=== PATIENT | female | born 1960 | race Caucasian/White ===

== ENCOUNTER 2020-04-02 11:30 | Outpatient (CLI) | payer OTHER, SELFPAY ==
--- NOTE | 2020-04-02 11:34 | MM_ITS ---
WS: [id number] BILATERAL DIGITAL SCREENING MAMMOGRAPHY WITH CAD CLINICAL INFORMATION: SCREENING HISTORY: Screening mammogram. No current complaints. COMPARISON: None. TECHNIQUE: Bilateral CC and MLO views. FINDINGS: The breasts are composed of heterogeneous fibroglandular density tissue, which can limit the detectio n of small underlying mass lesions. Dense asymmetric breast tissue upper outer LEFT breast. Recommend spot compression views and ultrasou nd for further evaluation. 7 mm asymmetric density upper outer RIGHT breast posterior depth. Recommend spot compression views an d ultrasound for further evaluation. 5 mm asymmetric density inner RIGHT breast best seen on the cc view. Recommend further evaluation wit h spot compression views and ultrasound. No comparisons. Punctate and lucent centered calcifications. MM/[place] [id number] IMPRESSION: BI-RADS: 0-Incomplete: Need additional imaging evaluation FOLLOW UP: Need Additional Imaging Several asymmetric densities described above require BILATERAL diagnostic mammo graphy and ultrasound for further evaluation.
== END 2020-04-02 11:31 | disposition home or self-care (01) ==
LOC: RADSHAW 11:30
PROVIDERS: PCP Electrodiagnostic Medicine; Visit Provider Nurse Practitioner Family
DX: Z12.31 Encounter for screening mammogram for malignant neoplasm of breast (principal); N64.89 Other specified disorders of breast
CPT/HCPCS: 77067

== ENCOUNTER 2020-04-15 07:54 | Outpatient (CLI) | payer OTHER, SELFPAY ==
--- NOTE | 2020-04-15 09:00 | XRR_ITS ---
PROCEDURE INFORMATION: Exam: XR Abdomen, 1 View Exam date and time: 04/15/2020 8:15 AM Age: 59 years old Clinical indication: Pain and condition or disease; Kidney or ureter condition; Calculus (stone) in kidney; Abdominal pain; Generalized; Prior surgery; Surgery type: Appendectomy, laproscopy; Patient HX: Left abd pain, history of kidney stones TECHNIQUE: Imaging protocol: XR of the abdomen. Views: Frontal supine view of the abdomen. 1 View. COMPARISON: CT abdomen pelvis w con* [id number] 11/21/2018 9:56 AM FINDINGS: Gastrointestinal tract: There is prominence of the amount of stool in the colon but otherwise the bowel gas pattern is unremarkable. No bowel dilation. Organs: No calcifications project on the kidneys or ureters. Small phleboliths are present in the lower pelvis. Bones/joints: Unremarkable. XR/XR KUB [id number] IMPRESSION: No acute abnormality. No renal stones are seen.
== END 2020-04-15 07:55 | disposition home or self-care (01) ==
LOC: RAD 08:00
PROVIDERS: PCP Electrodiagnostic Medicine; Visit Provider Nurse Practitioner Family
DX: N20.0 Calculus of kidney (principal); R10.84 Generalized abdominal pain; R31.9 Hematuria, unspecified
CPT/HCPCS: 74018; 80053; 81003; 88112

== ENCOUNTER 2020-04-29 13:17 | Outpatient (CLI) | payer OTHER, SELFPAY ==
--- NOTE | 2020-04-29 13:22 | US_ITS ---
WS: [id number] BILATERAL DIGITAL DIAGNOSTIC MAMMOGRAM MAMMOGRAPHY WITH CAD CLINICAL INFORMATION: BILATERAL BREAST MASS COMPARISON: April 02, 2020 TECHNIQUE: Bilateral CC, MLO, and ML views. FINDINGS: The breasts are composed of heterogeneous fibroglandular density, which can limit the detection of sm all underlying mass lesions. Lucent centered calcifications. Previously described asymmetric densitie s in both breasts are unchanged. Ultrasound is pending. ULTRASOUND BREAST BILATERAL TECHNIQUE: Ultrasound bilateral breast focused area of concern. CLINICAL INFORMATION: BILATERAL BREAST MASS COMPARISON: None. FINDINGS: Ultrasound bilateral breasts. Hypoechoic solid lesion right breast 12:00 position 2 cm from the nippl e measuring 5.1 x 4.6 x 5.8 mm. This is nonspecific and recommend further evaluation with ultrasound- guided biopsy. Adjacent ductal ectasia. No other suspicious lesions. Dense parenchymal tissue in both breasts. No suspicious lesions in the l eft breast. US/US breast BI limited* [id number] IMPRESSION: BI-RADS: 4-Suspicious Finding-Biopsy Should Be Considered FOLLOW UP: US Guided Biopsy Recommended Recommend ultrasound-guided biopsy right breast lesion.
--- NOTE | 2020-04-30 14:59 | PC.NURSE ---
Spoke to pt regarding Bx date and preop instructions. Patient voiced understanding and all questions answered. Pt to see pcp 05/05 at 820. Rian CHOE
== END 2020-04-29 13:18 | disposition home or self-care (01) ==
LOC: RADSHAW 13:20
PROVIDERS: PCP Electrodiagnostic Medicine; Visit Provider Electrodiagnostic Medicine
DX: R92.8 Other abnormal and inconclusive findings on diagnostic imaging of breast (principal); N63.15 Unspecified lump in the right breast, overlapping quadrants; N63.20 Unspecified lump in the left breast, unspecified quadrant
CPT/HCPCS: 76642; 77066

== ENCOUNTER 2020-05-11 07:00 | Outpatient (CLI) | payer OTHER, SELFPAY ==
[2020-05-11 07:37] LABS: INR 0.84 (0.8-1.2)
--- NOTE | 2020-05-11 08:00 | US_ITS ---
WS: [id number] ULTRASOUND-GUIDED RIGHT BREAST BIOPSY HISTORY: Right Breast lesion COMPARISON: 04/29/2020 and 04/02/2020 Procedure, risks and complications are explained to the patient. Medications are reviewed. Consent is obtained. The mass in the RIGHT breast is localized with ultrasound. Mass at 12:00, 2 cm from the nipple. Skin is cleansed with ChloraPrep and anesthetized with 1% buffered lidocaine. Small dermatome is made. Und er sterile conditions mass is biopsied with a 14-gauge Achieve needle. Multiple core biopsies are per formed. Material placed in formalin and sent to pathology for review. No complications encountered. Mass collapsed and became less apparent after several biopsies were performed suggesting this is prob ably of benign etiology. Breast tissue marker (Bard ultrasound enhanced ribbon): Single. Patient left the radiology suite with no complications. Patient is instructed [place] [facility] [place] [facility] with any concerns. US/[place] [id number] IMPRESSION: 1. Uncomplicated core needle biopsy RIGHT breast mass at 12:00. 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 No malignancy. RECOMMENDATION: Return to annual screening mammography. Screening mammography s jory be an March 2021.
== END 2020-05-11 07:01 | disposition home or self-care (01) ==
LOC: RAD 07:05
PROVIDERS: PCP Electrodiagnostic Medicine; Visit Provider Electrodiagnostic Medicine
DX: R92.8 Other abnormal and inconclusive findings on diagnostic imaging of breast (principal); N63.10 Unspecified lump in the right breast, unspecified quadrant; N62 Hypertrophy of breast; N60.41 Mammary duct ectasia of right breast; Z01.812 Encounter for preprocedural laboratory examination
CPT/HCPCS: 19083; 85610; 88305

== ENCOUNTER 2020-05-19 07:03 | Outpatient (CLI) | payer OTHER, SELFPAY ==
[2020-05-19] MEDS: iohexol 300 mg/mL 100 mL Btl IV (07:59)
--- NOTE | 2020-05-19 08:30 | CT_ITS ---
WS: [id number] CT ABDOMEN AND PELVIS WITH AND WITHOUT CONTRAST HISTORY: GROSS HEMATURIA TECHNIQUE: Unenhanced 5 mm axial imaging first performed through the abdomen. Post contrast imaging t hrough the abdomen and pelvis. Oral contrast has not been provided. Sagittal and coronal reformats a re submitted. All CT scans at [facility] use at least one of these dose optimization tech niques: automated exposure control; mA and/or kV adjustment per patient size (includes targeted exams where dose is matched to clinical indication); or iterative reconstruction. CONTRAST: Omnipaque 300; 95 mL IV. DLP: 2389.16 mGy.cm COMPARISON: 11/21/2018 Lung bases are clear. Heart size is normal. Small hiatal hernia. Liver is normal size with no bile duct dilatation. Negative gallbladder. Normal size spleen with gran ulomata. Pancreas and adrenal glands are normal. Normal aorta. RIGHT kidney: Normal size with no perinephric stranding. No calcifications or obstruction. No solid m ass. No uroepithelial lesions in the ureters or renal pelvis. LEFT kidney: Normal size with no perinephric stranding. No renal calcifications or obstruction. No re nal mass. No uroepithelial lesion. Urinary bladder: Urinary bladder is only minimally distended. The bladder wall is mildly thickened th roughout. There is no discrete mass. The thickening is symmetric and probably due to nondistention. There is marked constipation throughout the colon which has been previously described. No stricture o r change in caliber. Prior appendectomy. There is no ascites or adenopathy. Mild degenerative disc disease at L5-S1. No fractures. CT/CT abdomen pelvis wo/w [id number] IMPRESSION: 1. No renal calcifications or obstruction or mass. 2. Mild thickening of the bladder wall is probably due to underdistention. 3. Diffuse marked constipation. 4. Prior appendectomy. 5. Small hiatal hernia.
== END 2020-05-19 07:04 | disposition home or self-care (01) ==
LOC: CT 07:06
PROVIDERS: PCP Electrodiagnostic Medicine; Visit Provider Urology
DX: R31.0 Gross hematuria (principal); K44.9 Diaphragmatic hernia without obstruction or gangrene; K59.00 Constipation, unspecified; Q42.8 Congenital absence, atresia and stenosis of other parts of large intestine; N30.90 Cystitis, unspecified without hematuria
CPT/HCPCS: 74178; 81003

== ENCOUNTER → 2020-07-10 08:44 | Outpatient (BNVA) | payer OTHER, SELFPAY | PROVIDERS: PCP Electrodiagnostic Medicine; Visit Provider Surgery | DX: Z11.59 Encounter for screening for other viral diseases (principal) | CPT/HCPCS: 87635 ==

== ENCOUNTER 2020-07-16 07:31 | Day surgery (SDC) | payer OTHER, SELFPAY ==
[2020-07-15 13:51] VITALS: BMI 29.2
[2020-07-16 07:56] VITALS: BP 123/66; PULSE 72; RESP 18; TEMP 36.8; O2SAT 97
--- NOTE | 2020-07-16 07:59 | US_ITS ---
WS: [id number] ULTRASOUND-GUIDED RIGHT BREAST NEEDLE LOCALIZATION HISTORY: Localization RIGHT breast mass at 12:00. Procedure, risks and complications were explained to the patient. Consent is obtained. Skin is cleansed with ChloraPrep and anesthetized with 1% buffered lidocaine. Needle and guidewire pl aced in the area of concern with no complications. Mass and clip localized 12:00, 2 cm from the nippl e. Ultrasound guidance performed during the needle localization. Guidewire is left within the lesion. Guidewire secured and no complications encountered. Patient is being transported to the OR suite. Specimen radiograph is also reviewed. Clip and wire present. RECOMMENDATIONS: 6 month diagnostic RIGHT mammogram. US/[place] [id number] IMPRESSION: 1. Uncomplicated wire localization RIGHT breast mass at 12:00. Biopsy clip is noted. 2. Post biopsy site of the clip are present within the specimen. PATHOLOGY RESULTS: Benign breast tissue with fibrocystic changes. Duct ectasia and stromal sclerosis. Microcalcifications identified. Prior biopsy changes are identified. No atypia or malignancy.
[2020-07-16] MEDS: sodium chloride 0.9% 1,000 ML 30 ML IV (09:10)
--- NOTE | 2020-07-16 09:18 | ANES.PREANE2 ---
Pre-Anesthetic Assessment Pre-Anesthetic Assessment: Height/Weight: Height 1.57 m Weight 72.575 kg Temp Pulse Resp BP Pulse Ox 98.3 F 72 18 123/66 97 07/16/20 07:56 07/16/20 07:56 07/16/20 07:56 07/16/20 07:56 07/16/20 07:56 Preop Diagnosis: Breast lump Proposed Procedure: Operation Date: 07/16/20 10:00 Proposed Procedures p Excisional [place] [address] R89.7(Right) - Dev Calix MD Familial anesthetic complications: None Was Beta Adam taken within 24 hours: N/A Last intake: Intake Last Liquid Date 07/15/20 Last Liquid Time 21:00 Last Solid Date 07/15/20 Last Solid Time 21:00 Social: Social History: No alcohol and No tobacco Exam: Pre-Anes Outpt Exam: alert, oriented x 3, clear to auscultation bilaterally and regular rate & rhythm Airway: Cervical ROM: WNL MP: 2 Dentition: Other (permanent bridge) GI: GI: GERD Anesthetic Plan: ASA status: 1 Anesthesia: General Risk of > 500 ml blood loss (7ml/kg in children): No Meds/Allergies Current Medications: Current Medications Generic Name Dose Route Start Last Admin Trade Name Freq PRN Reason Stop Dose Admin Sodium Chloride 1,000 mls @ 30 ml s/hr 07/16/20 08:00 07/16/20 09:10 Sodium Chloride 0.9% IV 07/17/20 07:59 30 mls/hr .Q24H DEMETRIA Administration PFSH Anesthesia PFSH: Medical History (Updated 05/19/20 @ 12:02 by Chilo Pulido MD) Cystitis Gross hematuria Surgical History H/O laparoscopy Hx of appendectomy Hx of hysterectomy Family History Father Cancer METASTATIC NONSMALL CELL Sister Cancer BREAST CANCER Other CAD (coronary artery disease) Diabetes Social History Smoking and tobacco status: never smoked Alcohol intake: never Adopted: No Caregiver/support person: No Lives independently: No Household members: spouse Marital status: Current occupational status: retired Data Anesthesia Cardiac Studies: No Data to Display
--- NOTE | 2020-07-16 09:44 | W.PM.OPSUD ---
Surgery/Procedure H&P Update DATE OF PROCEDURE: July 16, 2020 DATE H&P PERFORMED: 06/23/20 H&P UPDATE INFORMATION: No changes to prior documentation PREOP DIAGNOSIS: Abnormal right breast biopsy. PLANNED PROCEDURE: Operation Date: 07/16/20 10:00 Proposed Procedures p Excisional [place] [id number] R89.7(Right) - Dev Calix MD
--- NOTE | 2020-07-16 10:04 | P.OP_ITS ---
Operative Report Date of procedure: July 16, 2020 Pre-op Diagnosis: Abnormal right breast biopsy (cystic hypersecretory hyperplasia). Post-op diagnosis: same Procedure Done: Right breast lumpectomy following preoperative needle localizat ion. Specimens removed/disposition: Right breast lumpectomy containing localization wire. Long suture anteriorly, short suture laterally. Surgeon: Dev Calix Anesthesia: MAC Estimated blood loss (mL): 2 Complications: None. Condition: stable Disposition: same day Procedure: The patient was brought to the operating room and was placed in a supine position on the operating room table. A monitored anesthetic was induced. The right breast was prepped and draped in a sterile fashion, taking care not to disturb the localization wire which had been placed in radiology preoperatively. A combination of 2% lidocaine and 0.5% bupivacaine with 1- 200,000 parts epinephrine was used for local anesthesia throughout the procedure. A curvilinear incision was carried out in the 12:00 axis of the right breast. Cautery was used to enter the breast tissue. The skin was undermined toward the insertion point of the localization wire and the localization wire was mobilized into the incision. Dissection was carried out down the wire until the hub of the wire was identified. The wire and tissue were then grasped with an Allis clamp and the tissue around the end of the wire was completely excised using a combination of cautery and sharp dissection. The patient had some fibrous/fibrocystic tissue in the area of the excision. Before the specimen was completely removed it was oriented for pathology with a long suture anteriorly and a short suture laterally. After the specimen was removed the wound was irrigated with saline and no other abnormalities were seen or palpated in the wound; she had remaining fibrocystic appearing tissue somewhat superiorly, posteriorly and medially. Hemostasis was good. The skin was reapproximated using a running subcuticular suture of 4-0 Vicryl. Benzoin and Steri-Strips were placed over the incision and a sterile bandage followed. The patient was taken to the recovery area in stable condition postoperatively.
[2020-07-16 10:20] VITALS: BP 149/79; PULSE 65; RESP 18; TEMP 36.6; O2SAT 98
[2020-07-16 10:42] VITALS: BP 168/92; PULSE 67; RESP 18; TEMP 36.6; O2SAT 98
--- NOTE | 2020-07-16 13:00 | US_ITS ---
WS: [id number] ULTRASOUND-GUIDED RIGHT BREAST NEEDLE LOCALIZATION HISTORY: Localization RIGHT breast mass at 12:00. Procedure, risks and complications were explained to the patient. Consent is obtained. Skin is cleansed with ChloraPrep and anesthetized with 1% buffered lidocaine. Needle and guidewire pl aced in the area of concern with no complications. Mass and clip localized 12:00, 2 cm from the nippl e. Ultrasound guidance performed during the needle localization. Guidewire is left within the lesion. Guidewire secured and no complications encountered. Patient is being transported to the OR suite. Specimen radiograph is also reviewed. Clip and wire present. RECOMMENDATIONS: 6 month diagnostic RIGHT mammogram. US/US breast surgical specimen IMPRESSION: 1. Uncomplicated wire localization RIGHT breast mass at 12:00. Biopsy clip is noted. 2. Post biopsy site of the clip are present within the specimen. PATHOLOGY RESULTS: Benign breast tissue with fibrocystic changes. Duct ectasia and stromal sclerosis. Microcalcifications identified. Prior biopsy changes are identified. No atypia or malignancy.
--- NOTE | 2020-07-16 14:47 | ANE.PACU2 ---
Inpatient post-anesthesia follow up: Airway intact: Yes Vital signs: Temperature 97.8 F Pulse Rate 67 Respiratory Rate 18 Blood Pressure 168/92 Pulse Oximetry 98 Oxygen Delivery Me thod Room Air Oxygen Flow Rate Fraction of Inspir ed Oxygen Hydration adequate: Yes Nausea and vomiting: No Pain level: 2 Mental status: Baseline
== END 2020-07-16 10:52 | disposition home or self-care (01) ==
PROVIDERS: PCP Electrodiagnostic Medicine; Visit Provider Surgery
PROC: (CPT 19301; principal; 2020-07-16 10:00)
DX: R92.8 Other abnormal and inconclusive findings on diagnostic imaging of breast (principal); Z20.3 Contact with and (suspected) exposure to rabies; R89.7 Abnormal histological findings in specimens from other organs, systems and tissues; M19.90 Unspecified osteoarthritis, unspecified site; M79.7 Fibromyalgia; K21.9 Gastro-esophageal reflux disease without esophagitis; Z80.3 Family history of malignant neoplasm of breast
CPT/HCPCS: 19301; 12345; 19285; 88305; C1889; J0690; J3010; J3490; J7030

== ENCOUNTER → 2020-09-17 10:23 | Outpatient (BNVA) | payer OTHER, SELFPAY | PROVIDERS: PCP Electrodiagnostic Medicine | DX: R68.89 Other general symptoms and signs (principal); Z20.828 Contact with and (suspected) exposure to other viral communicable diseases | CPT/HCPCS: 86710; 87400; 87635 ==

== ENCOUNTER 2020-12-28 19:41 | Emergency (ER) | payer OTHER, SELFPAY ==
[2020-12-28 19:56] VITALS: BP 169/90; PULSE 99; RESP 18; TEMP 36.8; O2SAT 95; BMI 29.2
--- NOTE | 2020-12-28 20:09 | ED_ITS ---
HPI - General Adult General: Chief complaint: General Medical Stated complaint: pain in L side face, Cough, Chills Time Seen by Provider: 12/28/20 20:00 Source: patient Mode of arrival: ambulatory Limitations: no limitations History of Present Illness: HPI narrative: 60-year-old female states she been having left-sided ear pain although drawn neck pain as well. States that hap pened earlier this morning. She states that since she had her Covid vaccine the end of November she has not been feeling real well either. She denies any chest pain denies any shortness of breath. Denies any worsening improving factors. States her pain is currently 7 out of 10. Associated symptoms: Deny chest pain, dyspnea, headache(s), nausea, rash or vomiting Review of Systems Const: Denies: fever(s), chills, body aches or change in appetite Eyes: Denies: blurry vision or eye discomfort ENMT: Reports: dental pain and ear or mastoid pain; Denies: throat pain Card: Denies: chest pain Resp: Denies: dyspnea GI: Denies: abdominal pain, nausea, vomiting or diarrhea : Denies: dysuria Musc: Denies: neck pain or back pain Skin/Breast: Denies: rash Neuro: Denies: headache(s) Psych: Denies: depression Nico/Lymph: Denies: easy bruising All/Imm: Denies: urticaria PFSH ED PFSH: Medical History (Updated 12/28/20 @ 20:12 by Jimmie Schmitt MD) Cystitis Gross hematuria Surgical History H/O laparoscopy Hx of appendectomy Hx of hysterectomy Family History Father Cancer METASTATIC NONSMALL CELL Sister Cancer BREAST CANCER Other CAD (coronary artery disease) Diabetes Social History Smoking and tobacco status: never smoked Alcohol intake: never Adopted: No Caregiver/support person: No Lives independently: No Household members: spouse Marital status: Current occupational status: retired Physical Exam Const: COMMON NORMALS: no acute distress, patient oriented x3 and healthy appe aring HENMT: COMMON NORMALS: normocephalic and atraumatic HEAD & SCALP: normocephalic and atraumatic OTHER: It is over left pterygoid muscle and left jaw. Left tympanic membrane is erythematous Eye: COMMON NORMALS: Equal, round and reactive pupils present and EOMs intact bilaterally PUPIL: Yes Equal, round and reactive pupils present Neck/C-Spine: COMMON NORMALS: full ROM and supple Chest: COMMONS NORMALS: normal inspection of the chest and normal palpation of entire chest wall Resp: COMMON NORMALS: normal respiratory effort, No retractions, No use of accessory muscles and clear to auscultation bilaterally AUSCULTATION: clear to auscultation bilaterally Cardio: COMMON NORMALS: regular rate, regular rhythm and No murmurs present (Cardio) RATE: regular rate RHYTHM: regular rhythm GI: COMMON NORMALS: Normal to inspection, nondistended, normoactive bowel sounds present, Soft to palpation, non-tender and no masses PALPATION: Yes Soft to palpation Extremity: COMMON NORMALS: normal to inspection and full ROM Neuro: COMMON NORMALS: patient oriented x3, moves all extremities and no focal motor deficits Psych: COMMON NORMALS: mental status grossly normal, Normal thought process present and cooperative THOUGHT PROCESS: Normal thought process present Skin: COMMON NORMALS: no rashes or lesions noted and no wounds GENERAL SKIN EXAM: no rashes or lesions noted Course Vital Signs: Vital signs: Vital Signs Temperature 98.3 F 12/28/20 19:56 Pulse Rate 99 12/28/20 19:56 Respiratory Rate 18 12/28/20 19:56 Blood Pressure 169/90 12/28/20 19:56 Pulse Oximetry 95 12/28/20 19:56 MDM - General Adult MDM Narrative: Medical decision making narrative: Patient presents with otitis media and will start her on Keflex. She also has some symptoms sound like TMJ and I recommended a mouthguard to be worn at night. She is stable for discharge and follow-up with PCP in 2 to 4 days and return if worsening. Discharge Plan Discharge Patient Disposition: Home Clinical Impression: Jaw pain Otitis media Qualifiers: Otitis media type: unspecified Laterality: left Qualified Code(s): H66.92 - Otitis media, unspecified, left ear Condition: Stable Prescriptions: New cephalexin 500 mg capsule 500 mg PO TID 7 Days Qty: 21 RF: 0 Naprosyn 500 mg tablet 500 mg PO BID PRN (Reason: pain) Qty: 20 RF: 0 No Action pantoprazole 40 mg tablet,delayed release (DR/EC) 40 mg PO DAILY RF: 0 polyethylene glycol 3350 [Miralax] 17 gram/dose powder 17 gm PO DAILY RF: 0 acetaminophen [Tylenol] 325 mg capsule 325 mg PO QID PRN (Reason: Pain) RF: 0 Hold Instructions: Resume on 07/21/20. Do not take additional acetaminophen with the pain medication that was prescribed at the time of surgery. 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
[2020-12-28 20:24] VITALS: BP 169/90; PULSE 99; RESP 18; O2SAT 95
--- NOTE | 2021-01-05 04:51 | PC.NURSE ---
upon pt discharge, meds were scanned but not saved by clicking the lower right svae button. Both the abx and pain meds were given to pt for adm
== END 2020-12-28 20:15 | disposition home or self-care (01) ==
PROVIDERS: Emergency Provider Emergency Medicine; PCP Electrodiagnostic Medicine
DX: H66.92 Otitis media, unspecified, left ear (principal); R68.84 Jaw pain
CPT/HCPCS: 99282

== ENCOUNTER → 2021-05-13 09:57 | Outpatient (BNVA) | payer OTHER, SELFPAY | PROVIDERS: PCP Electrodiagnostic Medicine; Visit Provider Urology | DX: R31.0 Gross hematuria (principal) | CPT/HCPCS: 88112 ==

== ENCOUNTER → 2021-06-15 13:46 | Outpatient (BNVA) | payer OTHER, SELFPAY | PROVIDERS: PCP Electrodiagnostic Medicine; Visit Provider Nurse Practitioner Family | DX: Z20.822 Contact with and (suspected) exposure to COVID-19 (principal); Z20.828 Contact with and (suspected) exposure to other viral communicable diseases | CPT/HCPCS: 87635 ==

== ENCOUNTER 2021-06-22 10:57 | Outpatient (CLI) | payer OTHER, SELFPAY ==
--- NOTE | 2021-06-22 11:04 | MM_ITS ---
WS: [id number] BILATERAL DIGITAL DIAGNOSTIC MAMMOGRAM MAMMOGRAPHY WITH CAD CLINICAL INFORMATION: POST NL, RT BREAST 6 MO F/U COMPARISON: April 29, 2020 and April 02, 2020 TECHNIQUE: Bilateral CC, MLO, and ML views. FINDINGS: Scattered fibroglandular densities bilaterally. Punctate and lucent centered calcifications. Lumpecto my upper outer right breast. No suspicious focal mass, asymmetry, calcifications, or architectural di stortion. Left breast is unremarkable and unchanged. Ultrasound is pending. ULTRASOUND BREAST RIGHT TECHNIQUE: Ultrasound right breast focused area of concern. CLINICAL INFORMATION: POST NL, RT BREAST 6 MO F/U COMPARISON: None. FINDINGS: Ultrasound right breast the 12:00 position 2 cm from the nipple. Ultrasound at the area of prior lump ectomy. Normal underlying soft tissue and scar tissue. No evidence of suspicious cystic or solid lesi on. No suspicious findings. MM/[place] [id number] IMPRESSION: BI-RADS: 2-Benign FOLLOW UP: 1 Year Follow-up Recommend return to annual diagnostic mammography.
== END 2021-06-22 10:58 | disposition home or self-care (01) ==
PROVIDERS: PCP Electrodiagnostic Medicine; Visit Provider Electrodiagnostic Medicine
DX: N63.25 Unspecified lump in the left breast, overlapping quadrants (principal)
CPT/HCPCS: 76642; 77066

== ENCOUNTER 2021-07-08 12:00 | Outpatient (CLI) | payer OTHER, SELFPAY | END 2021-07-09 12:08 | disposition home or self-care (01) | LOC: SLEEP 07-15 11:21 | PROVIDERS: PCP Electrodiagnostic Medicine; Visit Provider Electrodiagnostic Medicine | DX: G47.30 Sleep apnea, unspecified (principal); R53.83 Other fatigue; R06.83 Snoring | CPT/HCPCS: G0399 ==

== ENCOUNTER 2022-05-14 16:59 | Emergency (ER) | payer OTHER, SELFPAY ==
[2022-05-14 17:09] VITALS: BP 155/78; PULSE 73; RESP 14; TEMP 36.8; O2SAT 97; BMI 30.2
--- NOTE | 2022-05-14 17:42 | ED_ITS ---
HPI - Extremity Problem General: Chief complaint: Extremity Injury, Upper Stated complaint: Fell, Left arm injury Time Seen by Provider: 05/14/22 17:34 History of Present Illness: Patient is a 61-year-old female comes to the ED with right wrist and hand pain. Patient injured it around 4 PM today. She was in her garage walking up the steps and tripped. She states that the thumb side of her wrist hit the steps. She now has pain that she rates a 7 out of 10 in her wrist and hand. Patient has been applying cold pack on wrist and hand since injury and took 2 ibuprofen before coming to the ED denies any head trauma or loss of consciousness. Associated symptoms: Deny chest pain, fever(s) or rash Review of Systems Const: Denies: fever(s), chills or fatigue Eyes: Denies: change in vision or eye discomfort ENMT: Denies: throat pain, odynophagia, nasal discharge or nasal congestion Card: Denies: chest pain, palpitations, edema, swelling of feet/ankles, dyspnea on exertion or orthopnea Resp: Denies: dyspnea, productive cough or non-productive cough GI: Denies: abdominal pain, nausea, vomiting, diarrhea, constipation or hematochezia : Denies: flank pain, dysuria or hematuria Musc: Reports: extremity pain (Right wrist right hand); Denies: neck pain, back pain or extremity swelling Skin/Breast: Denies: rash or new lesions Neuro: Denies: headache(s), numbness in extremities or weakness in extremities PFS ED PFSH: Medical History (Updated 05/14/22 @ 18:22 by MANNY Aguilera) Cystitis Gross hematuria Surgical History H/O laparoscopy Hx of appendectomy Hx of hysterectomy Family History Father Cancer METASTATIC NONSMALL CELL Sister Cancer BREAST CANCER Other CAD (coronary artery disease) Diabetes Social History Smoking and tobacco status: never smoked Alcohol intake: never Adopted: No Caregiver/support person: No Lives independently: No Household members: spouse Marital status: Current occupational status: retired Physical Exam Const: COMMON NORMALS: no acute distress, patient oriented x3 and alert GENERAL APPEARANCE: cooperative and comfortable HENMT: COMMON NORMALS: normocephalic HEAD & SCALP: normocephalic MOUTH: Normal oral and palatal mucosa present THROAT: posterior oropharynx normal and uvula midline Neck/C-Spine: COMMON NORMALS: supple GENERAL: Yes normal visual inspection Resp: COMMON NORMALS: normal respiratory effort, No retractions, No use of accessory muscles and clear to auscultation bilaterally AUSCULTATION: clear to auscultation bilaterally Cardio: COMMON NORMALS: regular rate, regular rhythm, S1 normal heart sound present, S2 normal heart sound present, No gallops present (Cardio), No clicks present (Cardio), No murmurs present (Cardio) and Peripheral pulses 2+ throughout RATE: regular rate RHYTHM: regular rhythm HEART SOUNDS: S1 normal heart sound present and S2 normal heart sound present PERIPHERAL PULSES: Peripheral pulses 2+ throughout GI: COMMON NORMALS: Normal to inspection, nondistended, normoactive bowel sounds present, Soft to palpation, non-tender and no masses PALPATION: Yes Soft to palpation : COMMON NORMALS: Yes no CVA tenderness BLADDER/KIDNEY EXAM: Yes no CVA tenderness Back/Pelvis: COMMON NORMALS: no CVA tenderness Extremity: COMMON NORMALS: normal to inspection, full ROM and capillary refill normal NARRATIVE EXTREMITY EXAM: Patient's right wrist?no visible deformity. She has some mild tenderness over the thenar region of wrist and hand. Normal cap refill and patient is full range of motion in wrist. Neurovascular intact. Neuro: COMMON NORMALS: patient oriented x3 SENSORIUM/ORIENTATION: Yes alert GAIT: Yes Normal gait present Skin: GENERAL SKIN EXAM: dry skin Course Vital Signs: Vital signs: Vital Signs Temperature 98.2 F 05/14/22 17:09 Pulse Rate 73 05/14/22 17:09 Respiratory Rate 14 05/14/22 17:09 Blood Pressure 155/78 05/14/22 17:09 Pulse Oximetry 97 05/14/22 17:09 Oxygen Delivery Me thod 05/14/22 17:09 MDM - Extremity (Nontraumatic) Medical Decision Making Patient is a 61-year-old female comes to the ED with right hand and wrist pain after fall. Exam is benign she has no visible deformity noted. She has some mild tenderness to the thenar region. Full range of motion in wrist and hand. Neurovascular tact distally. X-ray of right hand and right wrist showed no acute fractures or findings. Patient was diagnosed with injury of right wrist and stable for discharge home. She was sent home with a Velcro wrist splint and told to follow-up with her PCP within a week for reevaluation. Return ED precautions given. Patient understood agree with plan. Lab Data Radiology Impressions Hand X-Ray 05/14/22 17:42 IMPRESSION: No acute fracture demonstrated. Wrist X-Ray 05/14/22 17:42 IMPRESSION: No acute fracture demonstrated. Discharge Plan Discharge Patient Disposition: Home Clinical Impression: Injury of wrist, right Qualifiers: Encounter type: initial encounter Qualified Code(s): S69.91XA - Unspecified injury of right wrist, hand and finger(s), initial encounter Condition: Stable Prescriptions: No Action pantoprazole 40 mg tablet,delayed release (DR/EC) 40 mg PO DAILY polyethylene glycol 3350 [Miralax] 17 gram/dose powder 17 gm PO DAILY acetaminophen [Tylenol] 325 mg capsule 325 mg PO QID PRN (Reason: Pain) Hold Instructions: Resume on 07/21/20. Do not take additional acetaminophen with the pain medication that was prescribed at the time of surgery. Naprosyn 500 mg tablet 500 mg PO BID PRN (Reason: pain) Qty: 20 0RF Discharge Orders: Discharge ED (Routine); Ordered 05/14/22 Ordered By: Chadd Sutherland Referrals: Eric Ansari DO [Primary Care Provider] - Discharge Diet: Regular Discharge Activity: Increase activity as tolerated Patient Instructions: Wrist Injury (ED) Activity Restrictions/Additional Instructions: Follow-up with medical provider as directed in the next 5 to 7 days reevaluation. Rest, ice and elevate right wrist. You can take [id number] ibuprofen or Tylenol to help with pain. Continue taking all home medications as previously prescribed. Return to the ER or your medical provider if condition worsens. Please read and understand discharge instructions. Thank you for choosing [facility] for your healthcare needs today. Please realize this is an emergency room and that we are providing you with a medical screening exam and this may not be complete and all inclusive of all the testing and or work up that you may need to determine your ailment or severity of your illness. It is very important that you follow up as instructed or that you return to the Emergency Department should you have concerns or if your condition changes or worsens in any way. Coding Level of Care Code ED Surgical Instrument Mechanic for Freddie Fwarmando Exam Comprehensive
--- NOTE | 2022-05-14 17:42 | XRR_ITS ---
PROCEDURE INFORMATION: Exam: XR Right Wrist Exam date and time: 05/14/2022 6:48 PM Age: 61 years old Clinical indication: Injury or trauma; Fall; Blunt trauma (contusions or hematomas); Wrist and hand; Right; Additional info: Fall injury TECHNIQUE: Imaging protocol: Radiologic exam of the Right wrist. Views: 3 or more views. COMPARISON: No relevant prior studies available. FINDINGS: Bones/joints: No fracture or other acute osseous abnormality. Mild degenerative change of the scaphotrapezium articulation. The joint spaces are otherwise maintained. Soft tissues: The soft tissues are unremarkable as demonstrated. XR/XR wrist RT min 3V* [id number] IMPRESSION: No acute fracture demonstrated.
--- NOTE | 2022-05-14 17:42 | XRR_ITS ---
PROCEDURE INFORMATION: Exam: XR Right Hand Exam date and time: 05/14/2022 6:48 PM Age: 61 years old Clinical indication: Injury or trauma; Fall; Blunt trauma (contusions or hematomas); Wrist and hand; Right; Additional info: Fall injury TECHNIQUE: Imaging protocol: Radiologic exam of the Right hand. Views: 3 or more views. COMPARISON: No relevant prior studies available. FINDINGS: Bones/joints: No fracture or other acute osseous abnormality. No acute joint abnormality demonstrated. Soft tissues: The soft tissues are unremarkable as demonstrated. XR/XR hand RT min 3V* [id number] IMPRESSION: No acute fracture demonstrated.
[2022-05-14] MEDS: HYDROcodone-acetaminophen 5-325 mg Tablet 1 TAB PO (17:47)
== END 2022-05-14 18:46 | disposition home or self-care (01) ==
PROVIDERS: Emergency Provider Physician Assistant; PCP Electrodiagnostic Medicine
DX: S69.91XA Unspecified injury of right wrist, hand and finger(s), initial encounter (principal); W01.0XXA Fall on same level from slipping, tripping and stumbling without subsequent striking against object, initial encounter
CPT/HCPCS: 73110; 73130; 99283

== ENCOUNTER 2022-09-16 15:24 | Outpatient (CLI) | payer OTHER, SELFPAY ==
--- NOTE | 2022-09-16 15:43 | MM_ITS ---
WS: [id number] BILATERAL SCREENING DIGITAL TOMOSYNTHESIS MAMMOGRAM WITH CAD HISTORY: Screening. COMPARISON: 06/22/2021, 04/29/2020 and 04/02/2026 Bilateral CC and MLO views with tomosynthesis and synthetic mammography submitted. Computer aided det ection analyzed. Breast composition: There are scattered areas of fibroglandular density. No suspicious masses, microc alcifications or architectural distortion. Benign bilateral calcifications. MM/[place] [id number] IMPRESSION: BI-RADS: 2-Benign FOLLOW UP: 1 Year Follow-up
== END 2022-09-16 15:25 | disposition home or self-care (01) ==
LOC: RAD 15:34
PROVIDERS: PCP Electrodiagnostic Medicine; Visit Provider Electrodiagnostic Medicine
DX: Z12.31 Encounter for screening mammogram for malignant neoplasm of breast (principal)
CPT/HCPCS: 77063; 77067

== ENCOUNTER 2023-10-13 07:15 | Outpatient (CLI) | payer MEDICARE, SELFPAY ==
--- NOTE | 2023-10-13 07:31 | MM_ITS ---
WS: [id number] BILATERAL SCREENING DIGITAL TOMOSYNTHESIS MAMMOGRAM WITH CAD HISTORY: SCREENING COMPARISON: 04/29/2020, 04/02/2020, 09/16/2022 Bilateral CC and MLO views with tomosynthesis and synthetic mammography submitted. Computer aided det ection analyzed. Breast composition: There are scattered areas of fibroglandular density. No suspicious masses, microc alcifications or architectural distortion. Benign calcifications in each breast. IMPRESSION: MM/[place] [id number] BI-RADS: 2-Benign FOLLOW UP: 1 Year Follow-up
== END 2023-10-13 07:16 | disposition home or self-care (01) ==
LOC: RAD 07:16
PROVIDERS: PCP Electrodiagnostic Medicine; Visit Provider Electrodiagnostic Medicine
DX: Z12.31 Encounter for screening mammogram for malignant neoplasm of breast (principal)
CPT/HCPCS: 77063; 77067

== ENCOUNTER 2023-11-01 08:42 | Outpatient (CLI) | payer MEDICARE, SELFPAY ==
--- NOTE | 2023-11-01 08:48 | CT_ITS ---
WS: [id number] CT HEAD NONCONTRAST HISTORY: HEADACHE TECHNIQUE: Contiguous axial imaging performed through the brain in 3.0 mm imaging. Bone and soft tiss ue windows. Sagittal and coronal reformats reviewed. All CT scans at [facility] use at least one of these dose optimization techniques: automated exposure control; mA and/or kV adjustment per pa tient size (includes targeted exams where dose is matched to clinical indication); or iterative recon struction. DLP: 894.98 mGy.cm COMPARISON: None available. No acute intracranial hemorrhage, midline shift or mass effect. Mild atrophy and mild low attenuation most likely from small vessel disease. Ventricles: Normal size with no hydrocephalus. No inferior displacement of the cerebellar tonsils. Paranasal sinuses: As visualized are clear. Mastoid air cells: Well pneumatized. Calvarium and scalp: Skull is intact with no soft tissue edema or swelling. CT/CT head wo con* [id number] IMPRESSION: 1. No acute intracranial hemorrhage or edema. 2. Mild atrophy and mild small vessel ischemic disease.
== END 2023-11-01 08:43 | disposition home or self-care (01) ==
LOC: RAD 08:43
PROVIDERS: PCP Electrodiagnostic Medicine; Visit Provider Electrodiagnostic Medicine
DX: R51.9 Headache, unspecified (principal); G31.9 Degenerative disease of nervous system, unspecified; I67.89 Other cerebrovascular disease
CPT/HCPCS: 70450

== ENCOUNTER → 2024-09-13 07:53 | Outpatient (BNVA) | payer MEDICARE, OTHER, SELFPAY | PROVIDERS: PCP Electrodiagnostic Medicine; Visit Provider Orthopaedic Surgery | DX: M25.561 Pain in right knee (principal); M25.562 Pain in left knee; G89.29 Other chronic pain | CPT/HCPCS: 73560; 73565; 99204 ==

== ENCOUNTER → 2024-09-23 08:33 | Outpatient (BNVA) | payer MEDICARE, OTHER, SELFPAY | PROVIDERS: PCP Electrodiagnostic Medicine; Visit Provider Orthopaedic Surgery | DX: M25.552 Pain in left hip (principal) | CPT/HCPCS: 73502; 99214 ==

== ENCOUNTER → 2024-10-07 08:47 | Outpatient (BNVA) | payer MEDICARE, OTHER, SELFPAY | PROVIDERS: PCP Electrodiagnostic Medicine; Visit Provider Orthopaedic Surgery | DX: M25.552 Pain in left hip (principal); M70.72 Other bursitis of hip, left hip | CPT/HCPCS: 99213 ==

== ENCOUNTER 2024-10-08 16:20 | Outpatient (RCR) | payer MEDICARE, OTHER, SELFPAY | END 2024-10-23 23:59 | disposition home or self-care (01) | LOC: SPT 16:20 | PROVIDERS: PCP Electrodiagnostic Medicine; Visit Provider Orthopaedic Surgery | DX: M25.552 Pain in left hip (principal) | CPT/HCPCS: 97110; 97161 ==

== ENCOUNTER 2024-10-14 07:42 | Outpatient (CLI) | payer MEDICARE, OTHER, SELFPAY ==
--- NOTE | 2024-10-14 | MM_ITS ---
WS: [id number] VIEWS: MLO and CC views both breasts. 3D digital tomosynthesis is also included in this exam. Comparison made with prior exam of 04/02/2020, 06/22/2021, 09/16/2022, 03/14/2024.. Findings: The breasts are heterogeneously dense, which may obscure small masses. No suspicious mass, tumor calcification or architectural distortion. MM/MM scr BI tomosynthesis [id number] Impression: BI-RADS: 2 - Benign FOLLOW-UP: 1 Year Follow-up This mammogram was also analyzed by the Computer Aided Detection System R2 Imag e [employer]ing Mother.
== END 2024-10-14 07:43 | disposition home or self-care (01) ==
PROVIDERS: PCP Electrodiagnostic Medicine; Visit Provider Electrodiagnostic Medicine
DX: Z12.31 Encounter for screening mammogram for malignant neoplasm of breast (principal); R92.333 Mammographic heterogeneous density, bilateral breasts
CPT/HCPCS: 77063; 77067

== ENCOUNTER 2024-10-24 05:00 | Outpatient (RCR) | payer MEDICARE, OTHER, SELFPAY | END 2024-11-19 09:58 | disposition home or self-care (01) | LOC: SPT 05:00 | PROVIDERS: PCP Electrodiagnostic Medicine; Visit Provider Orthopaedic Surgery | DX: M25.552 Pain in left hip (principal) | CPT/HCPCS: 97110 ==

== ENCOUNTER → 2024-11-01 11:11 | Outpatient (BNVA) | payer MEDICARE, OTHER, SELFPAY | PROVIDERS: PCP Electrodiagnostic Medicine; Visit Provider Orthopaedic Surgery | DX: M25.552 Pain in left hip (principal) | CPT/HCPCS: 99213 ==

== ENCOUNTER → 2025-01-20 09:20 | Outpatient (BNVA) | payer MEDICARE, OTHER, SELFPAY | PROVIDERS: PCP Electrodiagnostic Medicine; Visit Provider Podiatrist Foot & Ankle Surgery | DX: Q82.8 Other specified congenital malformations of skin (principal); M20.41 Other hammer toe(s) (acquired), right foot; M21.611 Bunion of right foot; M21.612 Bunion of left foot | CPT/HCPCS: 17110; 99204 ==

== ENCOUNTER 2025-02-19 15:05 | Outpatient (CLI) | payer MEDICARE, OTHER, SELFPAY ==
--- NOTE | 2025-02-19 15:08 | CTR_ITS ---
PROCEDURE INFORMATION: Exam: CT Abdomen And Pelvis Without And With Contrast Exam date and time: 02/19/2025 4:21 PM Age: 64 years old Clinical indication: Abdominal pain; Flank; Left; Prior surgery; Surgery date: 6+ months; Surgery type: Partial hyst, appy TECHNIQUE: Imaging protocol: Computed tomography of the abdomen and pelvis without and with contrast. Radiation optimization: All CT scans at this facility use at least one of these dose optimization techniques: automated exposure control; mA and/or kV adjustment per patient size (includes targeted exams where dose is matched to clinical indication); or iterative reconstruction. Contrast material: OMNI 350; Contrast volume: 100 ml; Contrast route: INTRAVENOUS (IV); COMPARISON: CT abdomen pelvis wo/w [id number] 05/19/2020 7:42 AM RADIATION DOSE METRICS: Total DLP (mGy-cm): 952.12 FINDINGS: Liver: Normal. No mass. Gallbladder and biliary ducts: Normal. No calcified stones. No ductal dilation. Pancreas: Normal. No ductal dilation. Spleen: Normal. No splenomegaly. Adrenal glands: Normal. No mass. Kidneys and ureters: Normal. No hydronephrosis. Stomach and bowel: Unremarkable. No obstruction. No mucosal thickening. Appendix: No evidence of appendicitis. Intraperitoneal space: Unremarkable. No free air. No significant fluid collection. Vasculature: Unremarkable. No abdominal aortic aneurysm. Lymph nodes: Unremarkable. No enlarged lymph nodes. Urinary bladder: Unremarkable as visualized. Reproductive: Status post hysterectomy. Bones/joints: Unremarkable. No acute fracture. Soft tissues: Unremarkable. CT/CT abdomen pelvis wo/w [id number] IMPRESSION: No acute findings.
[2025-02-19] MEDS: iohexol 350 mg/mL 500 mL Btl (per mL) PO (16:04)
[2025-02-19 16:16] LABS: Blood Urea Nitrogen 20 mg/dL (8-23)
[2025-02-19] MEDS: iohexol 350 mg/mL 500 mL Btl (per mL) IV (16:29)
== END 2025-02-19 15:06 | disposition home or self-care (01) ==
LOC: RAD 15:06
PROVIDERS: Radiology Neuroradiology; PCP Electrodiagnostic Medicine; Visit Provider Electrodiagnostic Medicine
DX: R10.9 Unspecified abdominal pain (principal); Z90.710 Acquired absence of both cervix and uterus
CPT/HCPCS: 74178; 82565; 84520

== ENCOUNTER → 2025-03-24 13:23 | Outpatient (BNVA) | payer MEDICARE, OTHER, SELFPAY | PROVIDERS: PCP Electrodiagnostic Medicine; Visit Provider Podiatrist Foot & Ankle Surgery | DX: Q82.8 Other specified congenital malformations of skin (principal); M20.41 Other hammer toe(s) (acquired), right foot; M21.611 Bunion of right foot; M21.612 Bunion of left foot | CPT/HCPCS: 99213 ==